=== PATIENT | female | born 1960 | race Caucasian/White ===

== ENCOUNTER 2021-11-07 08:00 | Outpatient (RCR) | payer BC, SELFPAY ==
--- NOTE | 2021-10-08 09:25 | PTOPEVAL ---
PHYSICAL THERAPY INITIAL EVALUATION. Thank you for referring Mary Turk to [facility].? The patient is scheduled to be seen for therapy? 1x/week for 4 weeks. Please review, sign, date and return this plan of care ROLO. I agree with and certify that the following plan of care is medically necessary. Referring Physician Date Attending Provider: Destiny Sorto *PT Outpatient Evaluation Start: 10/08/21 07:57 Evaluation Information Diagnosis L knee pain Onset ~6 months Subjective Information Pt states a few years ago she Query Text:As Reported By Patient/ was standing up from a low Family surface and while trying to stand her knee locked up and she was unable to move. This has become more frequent in the last few years, particularly in the last few months. Pt states now turning (pivoting) or sitting for too long and then standing up her knee and her entire leg will lock up. In the last couple of months she has not had the locking feeling more of just pain after prolonged sitting. Pt states she has been told her has arthritis, but is not sure if this is the only thing going on. Pt states she enjoys playing pickleball, walking for exercise, and doing yard work. Pt states after playing pickleball her lower leg will hurt for a couple of days. Pain Assessment Left Knee(s) Reported Pain Level 0 Pain Description Aching,Tightness Lowest Pain Intensity 0 Greatest Pain Intensity 5 Lower Extremity Range of Motion Gross Lower Extremity Range of Motion L knee active flexion 0-135 Comments R knee active flexion 0-128 Lower Extremity Muscle Strength Testing Gross Lower Extremity Strength moriah hip flexion 4+/5 moriah hip abduction 3/5 moriah hip extension 2/5 moriah knee flexion/extension 4/5 unable to perform glute bridge Muscle Length Testing Left Hamstring Length -30 Right Hamstring Length -30 Right Prone Knee Flexor Muscle Length ( 100 Left Prone Knee Flexor Muscle Length ( 100 Palpation As
--- NOTE | 2021-11-07 08:50 | PTOPEVAL ---
PHYSICAL THERAPY PROGRESS REPORT AND DISCHARGE SUMMARY. Thank you for referring Mary Turk to [facility] [place].? The patient is to be discharged from skilled therapy services at this time. Please review, sign, date and return this plan of care ROLO. I agree with and certify that the following plan of care is medically necessary. Referring Physician Date Attending Provider: Destiny Sorto Evaluation Information Diagnosis L knee pain Onset ~6 months Subjective Information Pt states her knee is feeling Query Text:As Reported By Patient/ awesome, she occasionally gets Family a twinge doing random things. She has been unable to play pickleball. She states her pain is centralized to just her knee. Pain Assessment Left Knee(s) Reported Pain Level 0 Greatest Pain Intensity 3 Lower Extremity Range of Motion Gross Lower Extremity Range of Motion L knee active flexion 0-135 Comments R knee active flexion 0-135 Lower Extremity Muscle Strength Testing Gross Lower Extremity Strength L hip flexion 4+/5 R hip flexion 5/5 R hip abduction 4-/5 L hip abduction 4/5 moriah hip extension 3+/5 R knee flexion/extension 5/5 L knee flexion 4+/5 - mild pain reported L knee extension 4+/5 able to perform glute bridges x10 this date Muscle Length Testing Left Hamstring Length -20 Right Hamstring Length -20 Right Prone Knee Flexor Muscle Length ( 110 Left Prone Knee Flexor Muscle Length ( 110 Balance Assessment 5 Time Sit to Stand Comments Initially: 15s without the use Query Text:Normative Data: If Greater of UEs Than 15 Seconds, 74% Increase Risk for 11/07/21: 12s without the use Recurrent Falls of UEs Safety Assessment Factors Affecting Safety No Concerns PT Clinical Summary Mary presents to therapy today for her progress report following 4 visits of therapy to treat her L knee pain. Today she reports 90% improvement in overall symptoms, she has been able to return to pickleball without an increase in pain. She demonstrates improved strength of both LEs, the right
== END 2021-11-07 14:40 | disposition home or self-care (01) ==
LOC: ANHPT 08:00
PROVIDERS: PCP Internal Medicine Infectious Disease
DX: M25.562 Pain in left knee (principal); M79.605 Pain in left leg; G89.29 Other chronic pain
CPT/HCPCS: 97110; 97112; 97140; 97161; 97530

== ENCOUNTER 2022-07-21 07:59 | Outpatient (RCR) | payer BC, SELFPAY ==
--- NOTE | 2022-07-21 08:40 | PTOPEVAL1 ---
Assessment and note entered by Alek Leon Evaluation Information Assessment Status Evaluation Diagnosis left knee pain, left knee OA Onset 07/02/22 Subjective Information Pt. reports she is preparing to undergo left TKA on 08/19/22. She states that she has been experiencing left knee pain for the past couple years. She reports that she does have a walker at home. She does not currently have a cane. She enjoys playing pickle ball and plans on returning to playing pickle ball. She reports that her goal for today is to be independent with her HEP. Reported Pain Level Pain Score 7: Self Report Assessment PT Clinical Summary Pt. is a 62 year old female who enters the clinic for pre-operative instruction regarding left TKA. She presents with decreased ROM and impaired gait on this date. At this time she is independent with exercise and has been thoroughly instructed in post operative care. She will be discharged at this time and anticipate pt. returning following surgery. Plan of Care Treatment Frequency and D/C from PT at this time. Duration These treatments will address the objective and functional deficits as defined above. The patient will be advanced safely and appropriately in order for the patient to progress towards his/her prior level of function. Additional exercises will be introduced and as well as a comprehensive home exercise program upon discharge, if needed, ?to ensure carryover of functional gains achieved in the clinic. This treatment plan has been reviewed and agreement upon by the patient.
== END 2022-07-21 09:04 | disposition home or self-care (01) ==
LOC: CHSPT 07:59
DX: M17.12 Unilateral primary osteoarthritis, left knee (principal); M25.562 Pain in left knee
CPT/HCPCS: 97110; 97161

== ENCOUNTER 2022-08-11 07:52 | Outpatient (CLI) | payer BC, SELFPAY | END 2022-08-11 07:53 | disposition home or self-care (01) | PROVIDERS: PCP Internal Medicine Infectious Disease | DX: Z01.818 Encounter for other preprocedural examination (principal) | CPT/HCPCS: 87081 ==

== ENCOUNTER 2022-08-22 15:58 | Outpatient (RCR) | payer BC, SELFPAY ==
--- NOTE | 2022-08-22 17:08 | PTOPEVAL1 ---
Assessment and note entered by Senait Stahl DPT Evaluation Information Assessment Status Evaluation Diagnosis L knee pain Onset 08/19/22 Subjective Information Patient reports she had a L TKA on 08/19/22. She reports she has been fairly active since surgey but feels today she has more swelling. Since surgery she has been using a walker but did not use an AD prior to surgery. Patient has difficulty with getting into and out of bed, standing for long periods of time and ambulating long distance. Prior she reports she was able to do everything but had a lot of pain. RTMD 09/08/22. Reported Pain Level Pain Score 8: Self Report Assessment PT Clinical Summary Patient is a 62 year female who presents to PT with L knee pain s/p L TKA on 08/22/22. Patient demonstrates decreased ROM, decreased strength and increased strength of the LE impairing his ability to get into bed, stand for long periods of time and ambulate. She would benefit from skilled PT to address impairments and return to PLOF. Plan of Care Interventions Electrical Stimulation,Gait Training,Hot Pack/Cold Pack,Intermittent Compression,Manual Therapy, Neuro Re-education,Patient/Caregiver Educati, Therapeutic Activities,Therapeutic Exercise,Self- Care/Home Management PT Services Indicated Yes Treatment Frequency and 3x weekly for 12 visits Duration These treatments will address the objective and functional deficits as defined above. The patient will be advanced safely and appropriately in order for the patient to progress towards his/her prior level of function. Additional exercises will be introduced and as well as a comprehensive home exercise program upon discharge, if needed, ?to ensure carryover of functional gains achieved in the clinic. This treatment plan has been reviewed and agreement upon by the patient.
--- NOTE | 2022-09-12 16:44 | PTOPPROGNS ---
Assessment and note entered by Senait Stahl DPT Evaluation Information Assessment Status Progress Diagnosis L knee pain Onset 08/19/22 Subjective Information Patient reports much improvement. She reports she has been able to play and take care of her grandkids. She reports she does notice stiffness with prolonged positioning. Assessment PT Clinical Summary Patient has been seen for 10 visits of skilled PT. She has demonstrated improved R knee ROM and stregth but continues to be limited in full ROM. She has been able to return to ADLs but is limited in amount of time she can withstand activity. She would benefit from continued skilled PT to address remaining impairments and return to PLOF. Plan of Care Interventions Electrical Stimulation,Gait Training,Hot Pack/Cold Pack,Intermittent Compression,Manual Therapy, Neuro Re-education,Patient/Caregiver Educati, Therapeutic Activities,Therapeutic Exercise,Self- Care/Home Management PT Services Indicated Yes Treatment Frequency and continue with current POC Duration These treatments will address the objective and functional deficits as defined above. The patient will be advanced safely and appropriately in order for the patient to progress towards his/her prior level of function. Additional exercises will be introduced and as well as a comprehensive home exercise program upon discharge, if needed, ?to ensure carryover of functional gains achieved in the clinic. This treatment plan has been reviewed and agreement upon by the patient.
--- NOTE | 2022-09-23 07:47 | PTOPREEVAL ---
Assessment and note entered by Senait Stahl DPT Evaluation Information Assessment Status Re-evaluation Diagnosis L knee pain Onset 08/19/22 Subjective Information Patient reports her knee feels stiff on some days. She reports she is still doing step to pattern with stair navigation. She reports pain has been decreased. Reported Pain Level Pain Score 3: Self Report Assessment PT Clinical Summary Patient has been seen for 12 visits of skilled PT with good improvements in strength and ROM of the L knee. She demonstrate -3-100 degrees of L knee ROM at this time. She continues to have difficulty with stair navigation but reports that standing and walking have improved. She would benefit from continued skilled PT to address remaining impairments and return to PLOF. Plan of Care Interventions Electrical Stimulation,Gait Training,Hot Pack/Cold Pack,Intermittent Compression,Manual Therapy, Neuro Re-education,Patient/Caregiver Educati, Therapeutic Activities,Therapeutic Exercise,Self- Care/Home Management PT Services Indicated Yes Treatment Frequency and continue 2x weekly for 10 visits Duration These treatments will address the objective and functional deficits as defined above. The patient will be advanced safely and appropriately in order for the patient to progress towards his/her prior level of function. Additional exercises will be introduced and as well as a comprehensive home exercise program upon discharge, if needed, ?to ensure carryover of functional gains achieved in the clinic. This treatment plan has been reviewed and agreement upon by the patient.
--- NOTE | 2022-10-24 09:02 | PTOPREEVAL ---
Assessment and note entered by JT File, PT Evaluation Information Assessment Status Re-evaluation Diagnosis L knee pain Onset 08/19/22 Subjective Information patient reports she returned to the MD who reports he is going to order her a brace to help with extension of the knee. she reports she still struggles with standing, getting in and out of a car, going down steps, and she has not yet reached her goal of returning to [employer]. Reported Pain Level Pain Score 0: Self Report Assessment PT Clinical Summary mrs. hi presents to skilled PT for her 22nd therapy visit today. she continues to display deficits in rom of the L knee, strength of the L knee, and functional activity performance. she has been back to the MD who would like for the patient to obtain a progressive extension brace to improve her mobility. she would benefit from continued skilled PT due to a lack of objective and functional goals achievement and continued progress to be made with skilled intervention. she has made progress towards goals, but continues to lack achievement in strength, functional mobility , and rom. Plan of Care Interventions Electrical Stimulation,Gait Training,Hot Pack/Cold Pack,Intermittent Compression,Manual Therapy, Neuro Re-education,Patient/Caregiver Educati, Therapeutic Activities,Therapeutic Exercise,Self- Care/Home Management PT Services Indicated Yes Treatment Frequency and continue skilled PT 2x weekly for 8 more visits Duration These treatments will address the objective and functional deficits as defined above. The patient will be advanced safely and appropriately in order for the patient to progress towards his/her prior level of function. Additional exercises will be introduced and as well as a comprehensive home exercise program upon discharge, if needed, ?to ensure carryover of functional gains achieved in the clinic. This treatment plan has been reviewed and agreement upon by the patient.
--- NOTE | 2022-11-25 09:01 | PTOPDC ---
Assessment and note entered by Senait Stahl DPT Evaluation Information Assessment Status Discharge Diagnosis L knee pain Onset 08/19/22 Subjective Information Patient reports that LOWELL brace is seeming to help with straightening of the knee. She reports she is wearing brace 2x per day. She reports she can do all activies but has to take increased time and caution. Reported Pain Level Pain Score 0: Self Report Assessment PT Clinical Summary Patient has been seen for 30 visits of skilled PT following L knee TKA. Patient made good progress towards goals with improvements in L knee strength and ROM. Patient has been able to return to all prior ADLs but does have to do so with increased time. She is compliant with HEP and LOWELL brace and is appropriate for DC at this time. Plan of Care PT Services Indicated No
== END 2022-11-25 23:59 | disposition home or self-care (01) ==
LOC: CHSPT 15:58
DX: Z47.1 Aftercare following joint replacement surgery (principal); Z96.652 Presence of left artificial knee joint
CPT/HCPCS: 97014; 97016; 97110; 97112; 97140; 97150; 97161; 97530; G0283